=== PATIENT | female | born 1975 | race Caucasian/White ===

== ENCOUNTER 2016-10-15 06:21 | Day surgery (SDC) | payer BC ==
[2016-10-08 16:49] VITALS: BMI 26.9
[~2016-10-15 06:21] MED LIST: ceFAZolin SODIUM 1 GM VIAL IVPB ONE
[2016-10-15] MEDS ORDERED: LIDOCAINE HCL 2% (20ML MULTI-DOSE VIAL) NR ONE (07:05)
[2016-10-15] MEDS ORDERED: DESFLURANE GAS 240 ML BOTTLE IH ONE (07:05)
[2016-10-15] MEDS ORDERED: SODIUM CHLORIDE 0.9% P/F 10 ML VIAL IJ ONE (07:38)
[2016-10-15] MEDS ORDERED: KETOROLAC TROMETHAMINE 30 MG/1 ML VIAL ONE (07:38)
[2016-10-15] MEDS ORDERED: DEXAMETHASONE SOD PHOSPHATE 4 MG/1 ML VIAL ONE (07:38)
[2016-10-15] MEDS ORDERED: PHENYLEPHRINE HCL 10 MG/1 ML SINGLE DOSE VIAL ONE (07:38)
[2016-10-15] MEDS ORDERED: ceFAZolin SODIUM 1 GM VIAL ONE (07:38)
[2016-10-15] MEDS ORDERED: ePHEDrine SULFATE 50 MG/1 ML AMPULE ONE (07:39)
[2016-10-15] MEDS ORDERED: ROCURONIUM BROMIDE 50 MG/5 ML VIAL ONE (07:39)
[2016-10-15] MEDS ORDERED: SUCCINYLCHOLINE CHLORIDE 200 MG/10 ML VIAL ONE (07:39)
[2016-10-15] MEDS ORDERED: PROPOFOL 20 ML ONE (07:39)
[2016-10-15] MEDS ORDERED: MIDAZOLAM HCL 2 MG/2 ML SINGLE DOSE VIAL ONE (07:39)
[2016-10-15] MEDS ORDERED: ceFAZolin SODIUM 1 GM VIAL IVPB ONE (08:17)
[2016-10-15] MEDS ORDERED: ONDANSETRON 4 MG/2 ML VIAL IVPUSH PRN (09:26)
[2016-10-15] MEDS ORDERED: LACTATED RINGERS SOLUTION 1,000 ML IV SCH (09:30)
[2016-10-15] MEDS ORDERED: NEOSTIGMINE METHYLSULFATE 0.5 MG/ML - 10 ML MDV ONE (09:41)
[2016-10-15] MEDS ORDERED: GLYCOPYRROLATE 0.2 MG/1 ML VIAL ONE (09:41)
--- NOTE | 2016-10-15 10:23 | HP ---
History & Physical Update - History History: No Change - Physical Physical: No Change - Assessment Assessment: No Change - Plan Plan: No Change
--- NOTE | 2016-10-15 10:26 | OP ---
Operative Note - Note: Operative Date: 10/15/16 Pre-Operative Diagnosis: Leiomyomatous uterus. abdominal pain Operation: Robotic Laparoscopic Total Hysterectomy. Bilateral salpingectomy Findings: leiomyomatous uterus Post-Operative Diagnosis: Same as Pre-op Surgeon: Chyna Charlton Coating Engineer: Karla Lopez Anesthesia: General Specimens Removed: Uterus cervix and bilateral fallopian tubes Estimated Blood Loss (mls): 30 Operative Report Dictated: Yes
[2016-10-15] MEDS: LACTATED RINGERS SOLUTION 1,000 ML IV SCH (13:00)
[2016-10-15] MEDS: IBUPROFEN 800 MG/8 ML IJ IVPB PRN ×2 (15:18→21:33)
[2016-10-15] MEDS: CEFAZOLIN 1 GM/D5W 50 ML IVPB SCH (17:23)
[2016-10-15 21:04] LABS: MCH 29.1 pg (25.7-33.7); MCHC 33.3 g/dl (32.0-36.0); MEAN CELL VOLUME 87.5 fl (80-96); MEAN PLT VOLUME 7.3 fl (7.5-11.1); PLATELET COUNT 444 K/MM3 (134-434); RDW 13.9 % (11.6-15.6); WHITE BLOOD COUNT 15.7 K/mm3 (4.0-10.0)
[2016-10-15] MEDS: oxyCODONE HCL 5 MG TABLET PO PRN (23:49)
[2016-10-16] MEDS: CEFAZOLIN 1 GM/D5W 50 ML IVPB SCH ×2 (01:32→08:58)
[2016-10-16] MEDS: LACTATED RINGERS SOLUTION 1,000 ML IV SCH (04:00)
[2016-10-16] MEDS: oxyCODONE HCL 5 MG TABLET PO PRN (06:02)
[2016-10-16 07:44] LABS: MCH 29.6 pg (25.7-33.7); MCHC 33.6 g/dl (32.0-36.0); MEAN CELL VOLUME 88.1 fl (80-96); MEAN PLT VOLUME 7.2 fl (7.5-11.1); PLATELET COUNT 371 K/MM3 (134-434); RDW 13.9 % (11.6-15.6); WHITE BLOOD COUNT 15.5 K/mm3 (4.0-10.0)
[2016-10-16] MEDS ORDERED: IBUPROFEN 600 MG TABLET (FP) PO PRN (08:31)
--- NOTE | 2016-10-16 08:37 | PN ---
Progress Note, Physician History of Present Illness: Pt seen/evaluated and doing well. Pain controlled overall, having some gas pain overnight. Tolerating regular diet. Ford catheter draining clear yellow urine, not yet OOB. Denies CP/SOB/F/C/ALBERTO. No VB. - Current Medication List Current Medications: Active Medications Bisacodyl (Dulcolax Suppository -) 10 mg MN ONCE ONE Stop: 10/16/16 12:01 Enoxaparin Sodium (Lovenox -) 30 mg SQ DAILY ROBBY Fentanyl (Sublimaze Injection -) 50 mcg IVPUSH [id number] PRN PRN Reason: PAIN Stop: 10/18/16 09:27 Last Admin: 10/15/16 12:08 Dose: 50 mcg Hydromorphone HCl (Dilaudid -) 4 mg PO Q4H PRN PRN Reason: PAIN Lactated Ringer's (Lactated Ringers Solution) 1,000 mls @ 75 mls/hr IV ASDIR ROBBY Lactated Ringer's (Lactated Ringers Solution) 1,000 mls @ 125 mls/hr IV ASDIR ROBBY Last Admin: 10/16/16 04:00 Dose: 125 mls/hr Cefazolin Sodium (Ancef 1 Gm Premixed Ivpb -) 50 mls @ 100 mls/hr IVPB Q8H-IV ROBBY Stop: 10/16/16 17:59 Last Admin: 10/16/16 01:32 Dose: 100 mls/hr Ibuprofen (Motrin -) 600 mg PO Q6H PRN PRN Reason: FEVER Oxycodone HCl (Roxicodone -) 5 mg PO Q4H PRN PRN Reason: MILD PAIN Last Admin: 10/16/16 06:02 Dose: 5 mg - Objective Vital Signs: Vital Signs Temperature 98.6 F 10/16/16 06:00 Pulse Rate 91 H 10/16/16 06:00 Respiratory Rate 18 10/16/16 06:00 Blood Pressure 138/77 10/16/16 06:00 O2 Sat by Pulse Oximetry (%) 99 10/15/16 21:00 Constitutional: Yes: Well Nourished, No Distress, Calm Eyes: Yes: Conjunctiva Clear, EOM Intact HENT: Yes: Atraumatic, Normocephalic Neck: Yes: Supple, Trachea Midline Cardiovascular: Yes: Regular Rate and Rhythm Respiratory: Yes: Regular, CTA Bilaterally Gastrointestinal: Yes: Soft, Tenderness (appropriate post surgical tenderness) Edema: No Wound/Incision: Yes: Clean/Dry, Dressing Dry and Intact Neurological: Yes: Alert, Oriented Psychiatric: Yes: Alert, Oriented Labs: CBC, BMP 10/16/16 07:00 Problem List - Problems (1) S/P laparoscopic hysterectomy Code(s): Z90.710 - ACQUIRED ABSENCE OF BOTH CERVIX AND UTERUS Assessment/Plan 40 y/o POD#1 s/p laparoscopic (robotic assisted) total hysterectomy and bilateral salpingectomy - AFVSS - Hgb 10.6 post op - pt stable - encourage OOB - regular diet - PO pain meds - OK for discharge once voids and passes flatus
[2016-10-16] MEDS ORDERED: ACETAMINOPHEN 325 MG TABLET (FP) PO PRN (08:45)
[2016-10-16] MEDS ORDERED: ENOXAPARIN NA (PORCINE) 40 MG/0.4 ML DISP.SYRIN SQ SCH (10:00)
[2016-10-16] MEDS ORDERED: ENOXAPARIN NA (PORCINE) 30 MG/0.3 ML DISP.SYRIN SQ SCH (10:00)
[2016-10-16] MEDS ORDERED: BISACODYL 10 MG SUPP.RECT RC ONE (12:00)
--- NOTE | 2016-10-16 13:59 | PATH ---
Surgical Pathology Report Patient Name: RADHA DOMINIQUE [facility]. Rec. 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 Specimen(s) Received UTERUS, CERVIX, BILATERAL FALLOPIAN TUBES Clinical History Leiomyoma of uterus Final Diagnosis UTERUS, CERVIX, BILATERAL FALLOPIAN TUBES, TOTAL HYSTERECTOMY AND BILATERAL SALPINGECTOMY: CERVIX: CHRONIC CERVICITIS. ENDOMETRIUM: PREDOMINANTLY INACTIVE. MYOMETRIUM: FOCAL ADENOMYOSIS, LEIOMYOMATA (LARGEST 1.5 CM). UTERINE SEROSA: WITHOUT SIGNIFICANT PATHOLOGIC CHANGES. LEFT FALLOPIAN TUBE: FOCAL FIBRINOHEMORRHAGIC ADHESIONS. RIGHT FALLOPIAN TUBE: FOCAL FIBRINOHEMORRHAGIC ADHESIONS. Electronically Signed Kyle Beatty M.D. Gross Description Received in formalin, labeled "uterus, cervix, both fallopian tubes" is an 81 g hysterectomy specimen including a uterus with an attached cervix and an attached left fallopian tube. The right fallopian tube is separately received within the same container. The specimen measures 8.2 cm from superior to inferior, 5 cm from anterior to posterior and 4.8 cm from left to right. The serosa is pink-mauro with focal bulging subserosal nodules. The attached cervix measures 2.7 cm in length and averages 2.4 cm in diameter. The ectocervix is pink-mauro, smooth and glistening. The endocervix is unremarkable. The endometrial cavity measures 3.5 cm in length and 2 cm from cornu to cornu. The endometrium is mauro-red and averages 0.1 cm in thickness. There are multiple intramural nodules, measuring up to 1.5 cm in greatest dimension. The cut surface of intramural and subserosal nodules is mauro, firm to rubbery and displays whorled architecture. No areas of hemorrhage or necrosis are identified. The remaining myometrium is mauro-pink and measures up to 2 cm in thickness. The attached left fimbriated fallopian tube measures 3 cm in length. Sectioning reveals an unremarkable lumen. The separately received right fimbriated fallopian tube measures 1.2 cm in length. The outer surface is mauro-pink and smooth. Sectioning reveals an unremarkable lumen. [employer] sections are submitted in 13 cassettes as follows: 1-anterior cervix; 2-posterior cervix; 4-3-iogmncfy endomyometrium; 8-0-oisiyziqg endomyometrium; 8-6-uwaslnalfj nodules; 9-intramural nodules; 10-left fallopian tube fimbria; 11-cross sections of left fallopian tube; 12-right fallopian tube fimbria; 13-cross sections of right fallopian tube. 10/15/2016 [facility]10/15/2016
[2016-10-16 14:07] VITALS: BP 133/88; PULSE 87; TEMP 99
--- NOTE | 2016-10-16 14:42 | OP ---
DATE OF OPERATION: 10/15/2016 PREOPERATIVE DIAGNOSIS: Leiomyomatous uterus and abdominal pain. OPERATION: Robotic laparoscopic total hysterectomy and bilateral salpingectomy. POSTOPERATIVE DIAGNOSIS: Leiomyomatous uterus and abdominal pain. SURGEON: Chyna Charlton MD PECAN HULLER: Karla Lopez DO ANESTHESIA: General. ESTIMATED BLOOD LOSS: 30 mL. PROCEDURE: Patient was taken to the operating room and placed in the dorsal lithotomy position. Prepped and draped in the usual sterile fashion. A timeout was performed in accordance with the hospital regulations. Ford catheter was inserted into the bladder. Cervix was then dilated to accommodate the [employer] uterine manipulator. It was inserted around the cervix. Attention was then drawn to the umbilicus, where an 8-mm umbilical incision was made. Veress needle was inserted into the cavity. Approximately 3 to 4 L of CO2 was insufflated in the cavity. Veress needle was then removed and an 8-mm trocar was then inserted. Laparoscope and camera were attached. Visualization revealed some omental adhesions and leiomyomatous uterus. Trocars were inserted, 2 on the left about 10 mm apart from the umbilicus, slightly lower incision. Scalpel was then used to make an 8-mm incision and trocar was inserted under direct visualization. AirSeal cannula was inserted in the upper abdomen. A 5-mm incision was made, and AirSeal cannula was then inserted. Two trocars were inserted on the right side 8 mm apart from each other at the level of the umbilicus. Scalpel was then used to make the 8-mm incision and both trocars were inserted under direct visualization. The patient was then placed in steep Trendelenburg. Da Carola robot was then side docked to the patient's bedside. Trocars were then inserted. Trocar placement was confirmed internally with the laparoscope and camera. A vessel sealer was inserted on the right and tenaculum and Endoshears were inserted on the left. Tenaculum was then used to coagulate and cut the round ligament. Vesicouterine section was then entered and bladder was bluntly dissected out of the operative field. Uteroovarian ligament was identified and clamped and cut on the left and uterine artery was identified and clamped and cut and cardinal ligament was identified and clamped and cut after bladder was bluntly dissected out of the operative field. Ureters were confirmed with peristalsis prior to the start of the case. Attention was then drawn to moving the tenaculum to the opposite side and round ligaments on the right were identified and clamped and cut. Uteroovarian ligament was identified and clamped and cut. Fallopian tube on the right was coagulated and cut using vessel sealer. Uterine artery was identified and clamped and cut and cardinal ligaments were identified and clamped and cut down to the level of the cervix. Endoshears was then used to enter the vagina anteriorly and on the VCare cut. Endoshears were then used to circumferentially cut the cervix away from the vagina. After cervix had been removed from the vagina, the uterus and tubes and cervix were then removed vaginally. A 0 V-Loc suture was then placed in the abdomen. The Endoshears and tenaculum and vessel sealer were removed and fenestrated bipolar forceps as well as 2 needle holders were inserted under direct visualization and needle was then grasped. The cuff was then closed using 0 V-Loc suture in continuous suturing and oversewing to the middle. V-Loc suture was then cut. The vagina seal was confirmed. Hemostasis was achieved. All pedicles were identified and found to be hemostatic. All instruments were then removed. CO2 was removed from the abdomen. All incisions were closed using 3-0 Biosyn in subcuticular fashion. Wound was washed and dressed. Patient had tolerated procedure well. Patient was taken to the recovery room in stable condition. Estimated blood loss was 30 mL. Alexis [id number]
--- NOTE | 2016-10-16 15:05 | PN ---
Progress Note (short form) - Note Progress Note: ANESTHESIA POST-OP CHECK 40F s/p roboric laparoscopic total hysterectomy under general anesthesia, POD # 1. No acute complaints, pain 0/10. Denies N/V, ambulating, tolerating PO diet. Vital Signs Temperature 99 F 10/16/16 14:00 Pulse Rate 87 10/16/16 14:00 Respiratory Rate 20 10/16/16 14:00 Blood Pressure 133/88 10/16/16 14:00 O2 Sat by Pulse Oximetry (%) 99 10/15/16 21:00 Active Medications Acetaminophen (Tylenol -) 650 mg PO Q4H PRN PRN Reason: FEVER OR PAIN Enoxaparin Sodium (Lovenox -) 30 mg SQ DAILY ROBBY Last Admin: 10/16/16 10:06 Dose: Not Given Fentanyl (Sublimaze Injection -) 50 mcg IVPUSH [id number] PRN PRN Reason: PAIN Stop: 10/18/16 09:27 Last Admin: 10/15/16 12:08 Dose: 50 mcg Hydromorphone HCl (Dilaudid -) 4 mg PO Q4H PRN PRN Reason: PAIN Lactated Ringer's (Lactated Ringers Solution) 1,000 mls @ 75 mls/hr IV ASDIR ROBBY Lactated Ringer's (Lactated Ringers Solution) 1,000 mls @ 125 mls/hr IV ASDIR ROBBY Last Admin: 10/16/16 04:00 Dose: 125 mls/hr Cefazolin Sodium (Ancef 1 Gm Premixed Ivpb -) 50 mls @ 100 mls/hr IVPB Q8H-IV ROBBY Stop: 10/16/16 17:59 Last Admin: 10/16/16 08:58 Dose: 100 mls/hr Ibuprofen (Motrin -) 600 mg PO Q6H PRN PRN Reason: FEVER Last Admin: 10/16/16 08:55 Dose: 600 mg Oxycodone HCl (Roxicodone -) 5 mg PO Q4H PRN PRN Reason: MILD PAIN Last Admin: 10/16/16 06:02 Dose: 5 mg Gen: awake, alert No apparent anesthesia complications. Pain well controlled. Continue management as per primary team.
[2016-10-16] MEDS ORDERED: INSULIN SLIDING SCALE (NOVOLOG) 1 VIAL SQ SCH (16:30)
== END 2016-10-16 15:45 | disposition home or self-care (01) ==
LOC: JASUSAT 06:21 → JASU-SURG 06:21 → J3W 13:20 → JASUSAT 10-16 15:45
PROVIDERS: ATTEND Obstetrics & Gynecology
PROC: 0UT7FZZ Resection of Bilateral Fallopian Tubes, Via Natural or Artificial Opening With Percutaneous Endoscopic Assistance (ICD-10-PCS; 2016-10-15)
PROC: 8E0W4CZ Robotic Assisted Procedure of Trunk Region, Percutaneous Endoscopic Approach (ICD-10-PCS; 2016-10-15)
PROC: 0UT9FZZ Resection of Uterus, Via Natural or Artificial Opening With Percutaneous Endoscopic Assistance (ICD-10-PCS; principal; 2016-10-15 08:00)
PROC: 0UTC7ZZ Resection of Cervix, Via Natural or Artificial Opening (ICD-10-PCS; 2016-10-15 08:00)
DX: N80.0 Endometriosis of uterus (principal); R10.84 Generalized abdominal pain
CPT/HCPCS: 58552; S2900; 36415; 84703; 85027; 88307-TC; 94010; 94760

== ENCOUNTER 2017-03-12 00:11 | Emergency (ER) | payer BC, OTHER ==
--- NOTE | 2017-03-12 01:03 | PDOC ---
History of Present Illness - History of Present Illness Initial Comments: 03/12/17 01:06 Patient is a 41 year old female with significant medical hx of IBS and lactose intolerance who is presenting to the ED with blood in stool for two days. Patient has been having blood in her stool for the past two days without any abdominal pain or diarrhea. She notes that today shes been passing more blood than yesterday. The patient notes that otherwise her bowel movements are formed and normal. She has 3-5 movements per day, as per her usual baseline, and has not increased in frequency. Patient also denies any abdominal pain, vomiting, fever, or chills. Denies any hx of colitis, diverticulitis, or hemorrhoids. Patient has had three colonoscopies in the past and all were negative. GI: Ward Garces MD Surgical Hx: Hysterectomy (10/2016) <Angelina Garnett - Last Filed: 03/12/17 01:18> <Nini Jha - Last Filed: 03/12/17 21:39> - General Stated Complaint: BLOOD IN STOOL Time Seen by Provider: 03/12/17 00:27 Past History <Angelina Garnett - Last Filed: 03/12/17 01:18> - Past Medical History Anemia: No Asthma: No Cancer: No Cardiac Disorders: No CVA: No COPD: No CHF: No Dementia: No Diabetes: No GI Disorders: Yes (IBS) Disorders: No HTN: No Hypercholesterolemia: No Liver Disease: No Seizures: No Thyroid Disease: No - Surgical History Abdominal Surgery: No Appendectomy: No Cardiac Surgery: No Cholecystectomy: No Lung Surgery: No Neurologic Surgery: No Orthopedic Surgery: No - Immunization History Immunization Up to Date: No - Psycho/Social/Smoking Cessation Hx Anxiety: No Suicidal Ideation: No Smoking History: Never smoked Have you smoked in the past 12 months: No Hx Alcohol Use: No Drug/Substance Use Hx: No Substance Use Type: None Hx Substance Use Treatment: No <Nini Jha - Last Filed: 03/12/17 21:39> - Past Medical History Allergies/Adverse Reactions: Allergies Allergy/AdvReac Type Severity Reaction Status Date / Time No Known Drug Allergies Allergy Verified 03/12/17 01:22 Home Medications: Ambulatory Orders Naproxen Sodium [Aleve] 220 mg PO PRN PRN 10/08/16 Hydrocortisone Acetate [Anusol Hc Suppository -] 25 mg RC DAILY #14 supp.rect Review of Systems - Review of Systems Comments:: 03/12/17 01:06 CONSTITUTIONAL: Absent: fever, chills, diaphoresis, generalized weakness, malaise, loss of appetite HEENT: Absent: rhinorrhea, nasal congestion, throat pain, throat swelling, difficulty swallowing, mouth swelling, ear pain, eye pain, visual changes CARDIOVASCULAR: Absent: chest pain, syncope, palpitations, irregular heart rate, lightheadedness , peripheral edema RESPIRATORY: Absent: cough, shortness of breath, dyspnea with exertion, orthopnea, wheezing, stridor, hemoptysis GASTROINTESTINAL: Present: blood in stool Absent: abdominal pain, abdominal distension, nausea, vomiting, diarrhea, constipation, melena, hematochezia GENITOURINARY: Absent: dysuria, frequency, urgency, hesitancy, hematuria, flank pain, genital pain MUSCULOSKELETAL: Absent: myalgia, arthralgia, joint swelling SKIN: Absent: rash, itching, pallor HEMATOLOGIC/IMMUNOLOGIC: Absent: easy bleeding, easy bruising, lymphadenopathy, frequent infections ENDOCRINE: Absent: unexplained weight gain, unexplained weight loss, heat intolerance, cold intolerance NEUROLOGIC: Absent: headache, focal weakness or paresthesia, dizziness, unsteady gait, seizure, mental status changes, bladder or bowel incontinence. PSYCHIATRIC: Absent: anxiety, depression, suicidal or homicidal ideation, hallucinations <Angelina Garnett - Last Filed: 03/12/17 01:18> *Physical Exam - Physical Exam Comments: 03/12/17 01:07 GENERAL: Well developed, well nourished. Awake and alert. No acute distress. HEENT: Normocephalic, atraumatic. PERRLA, EOMI. No conjunctival pallor. Sclera are non- icteric. Moist mucous membranes. Oropharynx is clear. NECK: Supple. Full ROM. No JVD. Carotid pulses 2+ and symmetric, without bruits. No thyromegaly. No lymphadenopathy. CARDIOVASCULAR: Regular rate and rhythm. No murmurs, rubs, or gallops. Distal pulses are 2+ and symmetric. PULMONARY: No evidence of respiratory distress. Lungs clear to auscultation bilaterally. No wheezing, rales or rhonchi. ABDOMINAL: Protuberant. Soft. Non-tender. Non-distended. No rebound or guarding. No organomegaly. Normoactive bowel sounds. MUSCULOSKELETAL: Normal range of motion at all joints. No bony deformities or tenderness. No CVA tenderness. EXTREMITIES: No cyanosis. No clubbing. No edema. No calf tenderness. SKIN: Warm and dry. Normal capillary refill. No rashes. No jaundice. NEUROLOGICAL: Alert, awake, appropriate. Cranial nerves 2-12 intact. Normal speech. Gait is normal without ataxia. PSYCHIATRIC: Cooperative. Good eye contact. Appropriate mood and affect. RECTAL: Skin tags. No thrombosed hemorrhoids. Normal tone. No blood appreciated. <Angelina Garnett - Last Filed: 03/12/17 01:18> ED Treatment Course - LABORATORY CBC & Chemistry Diagram: 03/12/17 01:39 03/12/17 01:39 <Nini Jha - Last Filed: 03/12/17 21:39> Medical Decision Making - Medical Decision Making 03/12/17 21:38 41-year-old female with a past medical history of IBS presented with concerns about bright red blood in her last bowel movement. On exam, she had no external hemorrhoids, but did have a significant number of skin tags. Rectal exam was negative for any blood in the vault. CBC revealed normal hemoglobin and hematocrit. 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 Garces if her symptoms persist. We did discuss the fact that she may have an internal hemorrhoid and Anusol suppositories were recommended <Nini Jha - Last Filed: 03/12/17 21:39> *DC/Admit/Observation/Transfer - Attestations Scribe Attestion: 03/12/17 01:07 Documentation prepared by Angelina Garnett, acting as medical coder for Nini Jha MD. <Angelina Garnett - Last Filed: 03/12/17 01:18> <Nini Jha - Last Filed: 03/12/17 21:39> Diagnosis at time of Disposition: Blood in stool - Discharge Dispostion Disposition: HOME Condition at time of disposition: Stable - Prescriptions Prescriptions: Hydrocortisone Acetate [Anusol Hc Suppository -] 25 mg RC DAILY #14 supp.rect - Referrals Referrals: Mayela Armando MD [Primary Care Provider] - Ward Garces MD [Staff Physician] - - Patient Instructions Printed Discharge Instructions: DI for Rectal Bleeding Additional Instructions: please follow up with your solar sales assessor parts picker your medication at the pharmacy
[2017-03-12 01:22] VITALS: BP 146/85; PULSE 90; TEMP 97.1; BMI 24.4
[2017-03-12 01:46] LABS: BASOPHIL 0.5 % (0-2.0); EOSINOPHIL 1.3 % (0-4.5); MCH 29.3 pg (25.7-33.7); MCHC 33.1 g/dl (32.0-36.0); MEAN CELL VOLUME 88.5 fl (80-96); NEUTROPHILS 74.9 % (42.8-82.8); PLATELET COUNT 417 K/MM3 (134-434); RDW 12.7 % (11.6-15.6); WHITE BLOOD COUNT 13.3 K/mm3 (4.0-10.0)
[2017-03-12 02:13] LABS: ALBUMIN 3.6 g/dl (3.4-5.0); ANION GAP 10 (8-16); BILIRUBIN,TOTAL 0.5 mg/dL (0.2-1.0); CALCIUM 8.5 mg/dL (8.5-10.1); CO2 22 mmol/L (21-32); CREATININE 0.6 mg/dL (0.55-1.02); GLUCOSE,RANDOM 123 mg/dL (74-106); SGOT/AST 15 U/L (15-37); SGPT/ALT 23 U/L (12-78); TOT PROT 7.4 g/dl (6.4-8.2)
[2017-03-12 02:14] LABS: ALK PHOS 99 U/L (45-117)
== END 2017-03-12 02:51 | disposition home or self-care (01) ==
LOC: JER 00:11
DX: K92.1 Melena (principal); K58.9 Irritable bowel syndrome, unspecified
CPT/HCPCS: 36415; 80053; 85025; 99281-25

== ENCOUNTER 2019-09-29 09:58 | Emergency (ER) | payer BC ==
[2019-09-29 10:15] VITALS: BMI 26.9
[2019-09-29] MEDS ORDERED: FAMOTIDINE 20 MG/50 ML IVPB 20 MG/50 ML MG IVPB ONE ×2 (11:05→11:33)
[2019-09-29] MEDS ORDERED: ACETAMINOPHEN 1000 MG/100 ML VIAL (NON FORMULARY) IVPB ONE (11:05)
[2019-09-29] MEDS ORDERED: ACETAMINOPHEN INJECTION 100 ML IVPB ONE (11:33)
[2019-09-29 12:07] LABS: BASO % 0.3 % (0-2.0); EOS % 0.7 % (0-4.5); HEMATOCRIT 35.8 % (32.4-45.2); HEMOGLOBIN 11.9 GM/dL (10.7-15.3); LYMPH % 22.9 % (8-40); MCHC 33.3 g/dl (32.0-36.0); MEAN CELL VOLUME 90.3 fl (80-96); MEAN PLT VOLUME 7.1 fl (7.5-11.1); NEUT % 72.1 % (42.8-82.8); PLATELET COUNT 411 K/MM3 (134-434); RBC 3.96 M/mm3 (3.60-5.2); RDW 12.9 % (11.6-15.6); WHITE BLOOD COUNT 13.2 K/mm3 (4.0-10.0)
[2019-09-29 12:24] LABS: INR 1.06 (0.83-1.09); PROTHROMBIN TIME (PATIENT) 12.5 SEC (9.7-13.0)
[2019-09-29 12:48] LABS: ALBUMIN 3.6 g/dl (3.4-5.0); ALK PHOS 99 U/L (45-117); ANION GAP 6 MMOL/L (8-16); BILIRUBIN,TOTAL 0.4 mg/dL (0.2-1); BLOOD UREA NITROGEN 7.1 mg/dL (7-18); CALCIUM 8.8 mg/dL (8.5-10.1); CHLORIDE 106 mmol/L (98-107); CO2 24 mmol/L (21-32); CREATININE 0.6 mg/dL (0.55-1.3); GLUCOSE,RANDOM 92 mg/dL (74-106); LIPASE 79 U/L (73-393); POTASSIUM 4.5 mmol/L (3.5-5.1); SGOT/AST 22 U/L (15-37); SGPT/ALT 32 U/L (13-61); SODIUM 136 mmol/L (136-145); TOT PROT 7.5 g/dl (6.4-8.2)
--- NOTE | 2019-09-29 12:57 | EKG ---
Test Reason : Blood Pressure : / mmHG Vent. Rate : 091 BPM Atrial Rate : 091 BPM P-R Int : 148 ms QRS Dur : 084 ms QT Int : 354 ms P-R-T Axes : 037 007 047 degrees QTc Int : 435 ms NORMAL SINUS RHYTHM NORMAL ECG WHEN COMPARED WITH ECG OF 08-OCT-2016 16:46, NO SIGNIFICANT CHANGE WAS FOUND Confirmed by MD Chavez Daniel ([id number]) on 09/29/2019 12:56:56 PM Referred By: Confirmed By:Micah Chavez MD
[2019-09-29] MEDS ORDERED: KETOROLAC TROMETHAMINE 15 MG/ML VIAL IVPUSH ONE (13:31)
--- NOTE | 2019-09-29 13:51 | PDOC ---
History of Present Illness <Aldair Romero - Last Filed: 09/29/19 14:34> - General History Source: Patient Exam Limitations: No Limitations - History of Present Illness Initial Comments: 09/29/19 13:48 43y F with PMH of IBS, lactose intolerance presenting to ED for CP x4d. Cp since saturday, went to urgent care yesterday dx with costochondritis, given diclofenac but it caused her gi upset. still has the pain. She describes the pain as sharp, in the middle of the chest and lower left side. Also endorses upper abdominal pain. Denies sob, back pain, n/v/d, urinary symptoms, headache, fevers, chills, recent infections or illnesses, abx use. Denies recent surgeries , travel, ocp use, history of mi in the family, smoking history. <Sherron Chen - Last Filed: 09/30/19 19:53> - General Chief Complaint: Pain Stated Complaint: CHEST PAIN Time Seen by Provider: 09/29/19 10:32 Past History <Aldair Romero - Last Filed: 09/29/19 14:34> - Past Medical History Anemia: No Asthma: No Cancer: No Cardiac Disorders: No CVA: No COPD: No CHF: No Dementia: No Diabetes: No GI Disorders: Yes (IBS) Disorders: No HTN: No Hypercholesterolemia: No Liver Disease: No Seizures: No Thyroid Disease: No - Surgical History Abdominal Surgery: No Appendectomy: No Cardiac Surgery: No Cholecystectomy: No Lung Surgery: No Neurologic Surgery: No Orthopedic Surgery: No - Immunization History Immunization Up to Date: No - Psycho Social/Smoking Cessation Hx Smoking History: Never smoked Have you smoked in the past 12 months: No Hx Alcohol Use: No Drug/Substance Use Hx: No Substance Use Type: None Hx Substance Use Treatment: No <Sherron Chen - Last Filed: 09/30/19 19:53> - Past Medical History Allergies/Adverse Reactions: Allergies Allergy/AdvReac Type Severity Reaction Status Date / Time No Known Drug Allergies Allergy Verified 03/12/17 01:22 Home Medications: Ambulatory Orders Diclofenac Sodium 50 mg PO TID PRN 09/29/19 Review of Systems - Review of Systems Constitutional: No: Symptoms Reported HEENTM: No: Symptoms Reported Respiratory: No: Symptoms reported Cardiac (ROS): Yes: See HPI ABD/GI: Yes: See HPI : No: Symptoms Reported Musculoskeletal: No: Symptoms Reported Integumentary: No: Symptoms Reported Neurological: No: Symptoms reported <Sherron Chen - Last Filed: 09/30/19 19:53> *Physical Exam - Vital Signs Last Vital Signs Temp Pulse Resp BP Pulse Ox 98.4 F 94 H 18 136/79 99 09/29/19 10:12 09/29/19 10:12 09/29/19 10:12 09/29/19 10:12 09/29/19 10:12 <Aldair Romero - Last Filed: 09/29/19 14:34> - Vital Signs Last Vital Signs Temp Pulse Resp BP Pulse Ox 98.4 F 94 H 18 136/79 99 09/29/19 10:12 09/29/19 10:12 09/29/19 10:12 09/29/19 10:12 09/29/19 10:12 - Physical Exam General Appearance: Yes: Nourished, Appropriately Dressed. No: Apparent Distress HEENT: positive: EOMI, RENNY, Normal ENT Inspection Neck: positive: Trachea midline, Supple. negative: Tender Respiratory/Chest: positive: Chest Tender (sternal and lower left chest), Lungs Clear, Normal Breath Sounds. negative: Crackles, Rales, Rhonchi, Stridor, Wheezing Cardiovascular: positive: Regular Rhythm, Regular Rate, S1, S2. negative: Edema , JVD, Murmur Vascular Pulses: Dorsalis-Pedis (R): 2+, Doralis-Pedis (L): 2+ Gastrointestinal/Abdominal: positive: Normal Bowel Sounds, Soft, Tenderness ( epigastric tendernes). negative: Guarding, Rebound Musculoskeletal: negative: CVA Tenderness Extremity: positive: Normal Capillary Refill. 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 intact, Fully Oriented, Alert, Normal Mood/ Affect, Normal Response, Motor Strength 5/5 <Sherron Chen - Last Filed: 09/30/19 19:53> ED Treatment Course - LABORATORY CBC & Chemistry Diagram: 09/29/19 11:42 09/29/19 11:42 - ADDITIONAL ORDERS Additional order review: Laboratory Results 09/29/19 09/29/19 11:42 11:42 PT with INR 12.50 INR 1.06 Sodium 136 Potassium 4.5 Chloride 106 Carbon Dioxide 24 Anion Gap 6 L BUN 7.1 Creatinine 0.6 Est GFR (CKD-EPI)AfAm 127.58 Est GFR (CKD-EPI)NonAf 110.08 Random Glucose 92 Calcium 8.8 Total Bilirubin 0.4 AST 22 ALT 32 Alkaline Phosphatase 99 Troponin I < 0.02 Total Protein 7.5 Albumin 3.6 Lipase 79 09/29/19 11:42 RBC 3.96 MCV 90.3 MCHC 33.3 RDW 12.9 MPV 7.1 L Neutrophils % 72.1 Lymphocytes % 22.9 D Monocytes % 4.0 Eosinophils % 0.7 Basophils % 0.3 - Medications Given in the ED: ED Medications Discontinued Medications Generic Name Dose Route Start Last Admin Trade Name Freq PRN Reason Stop Dose Admin Acetaminophen 1,000 mg 09/29/19 11:05 09/29/19 11:41 Ofirmev Injection - IVPB 09/29/19 11:06 1,000 mg ONCE ONE Administration Famotidine/Sodium Chloride 20 mg in 50 mls @ 100 mls/hr 09/29/19 11:05 11:41 Pepcid 20 Mg Premixed Ivpb - IVPB 09/29/19 11:34 100 mls/hr ONCE ONE Administration <Aldair Romero - Last Filed: 09/29/19 14:34> - LABORATORY CBC & Chemistry Diagram: 09/29/19 11:42 09/29/19 11:42 - ADDITIONAL ORDERS Additional order review: Laboratory Results 09/29/19 09/29/19 11:42 11:42 PT with INR 12.50 INR 1.06 Sodium 136 Potassium 4.5 Chloride 106 Carbon Dioxide 24 Anion Gap 6 L BUN 7.1 Creatinine 0.6 Est GFR (CKD-EPI)AfAm 127.58 Est GFR (CKD-EPI)NonAf 110.08 Random Glucose 92 Calcium 8.8 Total Bilirubin 0.4 AST 22 ALT 32 Alkaline Phosphatase 99 Troponin I < 0.02 Total Protein 7.5 Albumin 3.6 Lipase 79 09/29/19 11:42 RBC 3.96 MCV 90.3 MCHC 33.3 RDW 12.9 MPV 7.1 L Neutrophils % 72.1 Lymphocytes % 22.9 D Monocytes % 4.0 Eosinophils % 0.7 Basophils % 0.3 - RADIOLOGY Radiology Studies Ordered: Category Date Time Status CHEST PA & LAT [RAD] Stat Radiology 09/29/19 10:34 Completed - Medications Given in the ED: ED Medications Discontinued Medications Generic Name Dose Route Start Last Admin Trade Name Tamara PRN Reason Stop Dose Admin Acetaminophen 1,000 mg 09/29/19 11:05 09/29/19 11:41 Ofirmev Injection - IVPB 09/29/19 11:06 1,000 mg ONCE ONE Administration Famotidine/Sodium Chloride 20 mg in 50 mls @ 100 mls/hr 09/29/19 11:05 11:41 Pepcid 20 Mg Premixed Ivpb - IVPB 09/29/19 11:34 100 mls/hr ONCE ONE Administration <Sherron Chen - Last Filed: 09/30/19 19:53> Medical Decision Making - Medical Decision Making 09/29/19 19:45 43y F persenting for chest pain and abdominal discomfort after taking diclofenac. vitals wnl likely costochondritis and sensitivity to diclofenac. low suspicion for acs, pericarditis. PERC negative will draw basic labs, trop, cxr, lipase. -ofirmev, pepcid ekg: nsr at 91bpm, normal intervals, no signs of ischemia. labs wnl. cxr does not show any infiltrates or consolidaitons. pt feeling better. will give iv toradol to help with pain. safe for dc home. given return precautions. <Sherron Chen - Last Filed: 09/30/19 19:53> Discharge <Aldair Romero - Last Filed: 09/29/19 14:34> - Discharge Information Problems reviewed: Yes - Admission No <Sherron Chen - Last Filed: 09/30/19 19:53> - Discharge Information Clinical Impression/Diagnosis: Costochondritis, Diarrhea, Chest pain Condition: Good Disposition: HOME - Follow up/Referral Referrals: Ward Garces MD [Staff Physician] - - Patient Discharge Instructions Patient Printed Discharge Instructions: DI for Costochondritis Additional Instructions: You were seen in the emergency room for chest pain and GI discomfort. The pain is likely costochondritis and the upset stomach is likely from a reaction to the medication. I recommend taking Advil or ibuprofen for the pain. Continue taking PPI's such as Nexium. I recommend seeing a GI doctor as well, if you do not have one referral is provided below. Please make an appointment with your primary care doctor as well; sometimes insurance does not cover specialists without referral by the primary care doctor. Come back to the emergency room for worsening chest pain, shortness of breath, vomiting, or if any new or concerning symptom develops. Thank you - Post Discharge Activity Work/Back to School Note: Back to Work
[2019-09-29] MEDS ORDERED: KETOROLAC TROMETHAMINE 15 MG/ML VIAL ONE (14:27)
--- NOTE | 2019-09-29 14:32 | PDOC ---
Documentation entered by Micah Sotelo SCRIBE, acting as scribe for Aldair Romero MD. Aldair Romero MD: This documentation has been prepared by the Deepak saenz Daniel, SCRIBE, under my direction and personally reviewed by me in its entirety. I confirm that the documentation accurately reflects all work, treatment, procedures, and medical decision making performed by me. Attending Attestation - Resident Resident Name: AprilSherron - ED Attending Attestation I have performed the following: I have examined & evaluated the patient, The case was reviewed & discussed with the resident, I agree w/resident's findings & plan, Exceptions are as noted - HPI HPI: 09/29/19 14:32 43 F with h/o IBS presents to ED with midsternal chest pain. Pt was seen 4 days ago for similar complaint and was diagnosed with costochondritis. Since then, she has been taking diclofenac. Pt notes no improvement in her pain with this medication but reports that it has caused a flare up of her IBS. Endorses diarrhea and abdominal cramps. Denies N/V. Pt denies SOB. Denies F/C/cough. Denies pleuritic or exertional character of pain. - Physicial Exam PE: 09/29/19 14:33 "GENERAL: Awake, alert, and fully oriented, in no acute distress. HEAD: No signs of trauma EYES: PERRLA, EOMI, sclera anicteric, conjunctiva clear ENT: Auricles normal inspection, hearing grossly normal, nares patent, oropharynx clear without exudates. Moist mucosa NECK: Nontender, no stepoffs, Normal ROM, supple, no lymphadenopathy, JVD, or masses LUNGS: Breath sounds equal, clear to auscultation bilaterally. No wheezes, and no crackles HEART: Regular rate and rhythm, normal S1 and S2, no murmurs, rubs or gallops ABDOMEN: Soft, nontender, normoactive bowel sounds. No guarding, no rebound. No masses EXTREMITIES: Normal range of motion, no edema. No clubbing or cyanosis. No cords, erythema, or tenderness NEUROLOGICAL: Cranial nerves II through XII intact. 5/5 strength and sensation in all extremities, Normal speech, normal gait, normal cerebellar function SKIN: Warm, Dry, normal turgor, no rashes or lesions noted. - Medical Decision Making 09/29/19 14:33 43 F with atypical chest pain. EKG nonischemic. PERC score 0. Suspect msk or GI pain. - Labs, trop - CXR 09/29/19 14:49 Labs and XR unremarkable Pt is well appearing, with normal vitals. Clinically stable for DC at this time. I discussed the physical exam findings, ancillary test results and final diagnoses with the patient. I answered all of the patient's questions. The patient was satisfied with the care received and felt comfortable with the discharge plan and treatment plan. The patient agrees to follow up with the primary care physician within 24-72 hours.
[2019-09-29 15:10] VITALS: BP 134/67; PULSE 88; TEMP 98.5
== END 2019-09-29 15:10 | disposition home or self-care (01) ==
LOC: JER 09:58
PROC: 3E033GC Introduction of Other Therapeutic Substance into Peripheral Vein, Percutaneous Approach (ICD-10-PCS; principal; 2019-09-29)
PROC: 3E033GC Introduction of Other Therapeutic Substance into Peripheral Vein, Percutaneous Approach (ICD-10-PCS; 2019-09-29)
PROC: 3E0333Z Introduction of Anti-inflammatory into Peripheral Vein, Percutaneous Approach (ICD-10-PCS; 2019-09-29)
DX: M94.0 Chondrocostal junction syndrome [Tietze] (principal); K52.1 Toxic gastroenteritis and colitis; T39.8X5A Adverse effect of other nonopioid analgesics and antipyretics, not elsewhere classified, initial encounter; Y92.038 Other place in apartment as the place of occurrence of the external cause
CPT/HCPCS: 36415; 71046-TC-FY; 80053; 83690; 84484; 85025; 85610; 93005; 93010; 99283-25; J0131

== ENCOUNTER 2020-06-27 15:02 | Emergency (ER) | payer BC ==
[2020-06-27 15:15] VITALS: BP 156/87; PULSE 109; BMI 27.4
--- NOTE | 2020-06-27 15:17 | PDOC ---
Rapid Medical Evaluation Time Seen by Provider: 06/27/20 15:11 Medical Evaluation: Allergies Allergy/AdvReac Type Severity Reaction Status Date / Time No Known Drug Allergies Allergy Verified 06/27/20 15:09 06/27/20 15:11 I have performed a brief in-person examination on this patient. CC: anal pain with blood streaked stools PE: deferred Orders: nothing Patient will proceed to ED for further evaluation. Discharge Disposition - Diagnosis Anal or rectal pain - Referrals - Patient Instructions - Post Discharge Activity
[2020-06-27 15:18] VITALS: TEMP 97.8
--- NOTE | 2020-06-27 16:26 | PDOC ---
History of Present Illness - General Chief Complaint: Hemorrhoids Stated Complaint: SICK Time Seen by Provider: 06/27/20 15:11 - History of Present Illness Initial Comments: 06/27/20 16:23 44-year-old female with a past medical history of hypertension presents for evaluation of hemorrhoids x1 week. Seen in urgent care given Anusol she has not followed up with gastroenterology yet. Past History - Medical History Allergies/Adverse Reactions: Allergies Allergy/AdvReac Type Severity Reaction Status Date / Time No Known Drug Allergies Allergy Verified 06/27/20 15:09 Home Medications: Ambulatory Orders Diclofenac Sodium 50 mg PO TID PRN 09/29/19 Docusate Sodium [Colace] 100 mg PO BID #20 capsule 06/27/20 Anemia: No Asthma: No Cancer: No Cardiac Disorders: No CVA: No COPD: No CHF: No Dementia: No Diabetes: No GI Disorders: Yes (IBS) Disorders: No HTN: No Hypercholesterolemia: No Liver Disease: No Seizures: No Thyroid Disease: No - Surgical History Abdominal Surgery: No Appendectomy: No Cardiac Surgery: No Cholecystectomy: No Lung Surgery: No Neurologic Surgery: No Orthopedic Surgery: No - Reproductive History Is Patient Now?: No - Immunization History Immunization Up to Date: No - Psycho-Social/Smoking History Smoking History: Never smoked Have you smoked in the past 12 months: No - Substance Abuse Hx (Audit-C & DAST Scrn) How often the patient has a drink containing alcohol: Never Score: In Men: 4 or > Positive; In Women: 3 or > Positive: 0 Screen Result (Pos requires Nsg. Audit-10AR): Negative In the last yr the pt used illegal drug/Rx for NonMed reason: No Score: Yes response is considered Positive: 0 Screen Result (Positive result requires Nsg. DAST-10): Negative Review of Systems - Review of Systems ABD/GI: Yes: See HPI *Physical Exam - Vital Signs Last Vital Signs Temp Pulse Resp BP Pulse Ox 97.8 F 109 H 18 156/87 100 06/27/20 15:09 06/27/20 15:09 06/27/20 15:09 06/27/20 15:09 06/27/20 15:09 - Physical Exam 06/27/20 16:23 Hemorrhoids at the 12:00 and 6 o'clock position nonthrombosed. Medical Decision Making - Medical Decision Making 06/27/20 16:23 Colace continue Anusol follow-up with gastroenterology I have reviewed the pathophysiology with the patient. They are in agreement with the treatment plan all questions were answered to their satisfaction. Understanding for follow-up without fail was also conveyed to the patient. Louie crump they are in agreement. Discharge - Discharge Information Problems reviewed: Yes Clinical Impression/Diagnosis: Anal or rectal pain, Hemorrhoid Condition: Stable Disposition: HOME - Admission No - Additional Discharge Information Prescriptions: Docusate Sodium [Colace] 100 mg PO BID #20 capsule - Follow up/Referral Referrals: Ward Garces MD [Staff Physician] - - Patient Discharge Instructions Additional Instructions: Please take the stool softeners as directed and return to the emergency room for worsening symptoms. Without fail follow-up with gastroenterology in 1 to 2 days for further evaluation and treatment options. - Post Discharge Activity
--- OUTSIDE RECORDS SUMMARY | 2020-06-27 18:04 | XMS ---
:1975 Author Organization [facility] Support Name Relationship Address Phone [employer] Unavailable [address] [place] [address] [address] [place] [place] [address] Re-disclosure Warning The records that you are about to access may contain information from federally- assisted alcohol or drug abuse programs. If such information is present, then the following federally mandated warning applies: This information has been disclosed to you from records protected by federal confidentiality rules (42 CFR part 2). The federal rules prohibit you from making any further disclosure of this information unless further disclosure is expressly permitted by the written consent of the person to whom it pertains or as otherwise permitted by 42 CFR part 2. A general authorization for the release of medical or other information is NOT sufficient for this purpose. The Federal rules restrict any use of the information to criminally investigate or prosecute any alcohol or drug abuse patient.The records that you are about to access may contain highly sensitive health information, the redisclosure of which is protected by Article 27-F of the [facility] Public Health law. If you continue you may haveaccess to information: Regarding HIV / AIDS; Provided by facilities licensed or operated by the [facility] Office of Mental Health; or Provided by the [facility] Office for People With Developmental Disabilities. If such information is present, then the following [facility] mandated warning applies: This information has been disclosed to you from confidential records which are protected by state law. State law prohibits you from making any further disclosure of this information without the specific written consent of the person to whom it pertains, or as otherwise permitted by law. Any unauthorized further disclosure in violation of state law may result in a fine or usp sentence or both. A general authorization for the release of medical or other information is NOT sufficient authorization for further disclosure. Insurance Providers Payer name Policy type / Policy ID Covered Covered green party's Policy Plan Coverage type green party ID relationship to [place] Information [place] OUT OF [id number] [id number]
== END 2020-06-27 16:40 | disposition home or self-care (01) ==
LOC: JERFT 15:02
DX: K62.89 Other specified diseases of anus and rectum (principal)
CPT/HCPCS: 99282-25

== ENCOUNTER 2020-11-21 07:49 | Inpatient (IN) | payer OTHER ==
[2020-11-21] MEDS ORDERED: ONDANSETRON 4 MG/2 ML VIAL IVPUSH ONE ×2 (08:50→14:44)
[2020-11-21] MEDS ORDERED: LACTATED RINGERS SOLUTION 1000 ML INFUS.BAG IV ONE ×2 (08:50→11:45)
[2020-11-21] MEDS ORDERED: FAMOTIDINE 20 MG/50 ML IVPB 20 MG/50 ML MG IVPB ONE ×2 (08:50→08:57)
[2020-11-21] MEDS ORDERED: ACETAMINOPHEN 1000 MG/100 ML VIAL (NON FORMULARY) IVPB ONE (08:50)
[2020-11-21] MEDS ORDERED: SUCRALFATE 1 GM/10 ML UNIT DOSE CUPS PO ONE (08:50)
[2020-11-21] MEDS ORDERED: SUCRALFATE 1 GM TABLET (FP) ONE (08:57)
[2020-11-21] MEDS ORDERED: ONDANSETRON 4 MG/2 ML VIAL ONE ×2 (08:57→14:52)
[2020-11-21] MEDS ORDERED: ACETAMINOPHEN INJECTION 100 ML IVPB ONE (08:58)
[2020-11-21 09:52] LABS: BASO % 0.3 % (0-2.0); EOS % 0.1 % (0-4.5); HEMATOCRIT 37.7 % (32.4-45.2); LYMPH % 19.9 % (8-40); MCH 30.7 pg (25.7-33.7); MCHC 34.4 g/dl (32.0-36.0); MEAN CELL VOLUME 89.4 fl (80-96); MEAN PLT VOLUME 7.1 fl (7.5-11.1); MONO % 2.8 % (3.8-10.2); NEUT % 76.9 % (42.8-82.8); PLATELET COUNT 504 K/MM3 (134-434); RBC 4.21 M/mm3 (3.60-5.2); WHITE BLOOD COUNT 13.1 K/mm3 (4.0-10.0)
[2020-11-21 10:11] LABS: CHLORIDE 105 mmol/L (98-107); SODIUM 138 mmol/L (136-145)
[2020-11-21 10:14] LABS: CALCIUM 9.7 mg/dL (8.5-10.1)
[2020-11-21 10:15] LABS: ALBUMIN 4.1 g/dl (3.4-5.0); ANION GAP 12 MMOL/L (8-16); BLOOD UREA NITROGEN 6.8 mg/dL (7-18); CO2 22 mmol/L (21-32); GLUCOSE,RANDOM 89 mg/dL (74-106); LIPASE 79 U/L (73-393)
[2020-11-21 10:18] LABS: CREATININE 0.6 mg/dL (0.55-1.3); SGOT/AST 24 U/L (15-37); SGPT/ALT 66 U/L (13-61)
[2020-11-21 10:19] LABS: BILIRUBIN,TOTAL 0.7 mg/dL (0.2-1); TOT PROT 8.5 g/dl (6.4-8.2)
[2020-11-21 10:21] LABS: ALK PHOS 111 U/L (45-117)
[2020-11-21] MEDS ORDERED: MAG HYDROX/AL HYDROX/SIMETH 30 ML UNIT-DOSE CUP PO ONE (11:46)
[2020-11-21] MEDS ORDERED: MAG HYDROX/AL HYDROX/SIMETH 30 ML UNIT-DOSE CUP ONE (13:25)
[2020-11-21 14:12] LABS: URINE APPEARANCE CLEAR; URINE BILIRUBIN NEGATIVE (NEGATIVE); URINE COLOR YELLOW; URINE GLUCOSE (UA) NEGATIVE (NEGATIVE); URINE KETONE 1+ (NEGATIVE); URINE LEUK ESTERASE NEGATIVE (NEGATIVE); URINE NITRITE NEGATIVE (NEGATIVE); URINE PROTEIN NEGATIVE (NEGATIVE); URINE UROBILINOGEN 0.2 mg/dL (0.2-1.0)
[2020-11-21 14:49] LABS: EPI CELLS 1 /uL (0-25.1); HYALINE CASTS 0 /uL (0-3.1); URINE BACTERIA 334 /uL (0-1359); URINE RBC 7 /uL (0-23.9); URINE WBC 1 /uL (0-25.8)
[2020-11-21] MEDS ORDERED: LORazepam 1 MG TABLET PO ONE (17:53)
[2020-11-21] MEDS ORDERED: FAMOTIDINE 20 MG TABLET ONE (18:31)
[2020-11-21] MEDS ORDERED: LORazepam 1 MG TABLET ONE (18:32)
[2020-11-21] MEDS: FAMOTIDINE 20 MG TABLET PO SCH (18:52)
[2020-11-22 09:09] LABS: BASO % 0.3 % (0-2.0); EOS % 0.2 % (0-4.5); HEMATOCRIT 35.8 % (32.4-45.2); HEMOGLOBIN 12.3 GM/dL (10.7-15.3); LYMPH % 22.2 % (8-40); MCHC 34.5 g/dl (32.0-36.0); MEAN CELL VOLUME 89.8 fl (80-96); MEAN PLT VOLUME 6.8 fl (7.5-11.1); NEUT % 74.3 % (42.8-82.8); PLATELET COUNT 479 K/MM3 (134-434); RBC 3.98 M/mm3 (3.60-5.2); RDW 13.1 % (11.6-15.6); WHITE BLOOD COUNT 15.2 K/mm3 (4.0-10.0)
[2020-11-22 09:27] LABS: CHLORIDE 104 mmol/L (98-107); POTASSIUM 3.9 mmol/L (3.5-5.1); SODIUM 139 mmol/L (136-145)
[2020-11-22 09:37] LABS: ALBUMIN 4.2 g/dl (3.4-5.0); ANION GAP 11 MMOL/L (8-16); BLOOD UREA NITROGEN 5.8 mg/dL (7-18); CALCIUM 9.3 mg/dL (8.5-10.1); CO2 23 mmol/L (21-32); GLUCOSE,RANDOM 82 mg/dL (74-106)
[2020-11-22 09:38] LABS: MAGNESIUM 2.3 mg/dL (1.8-2.4)
[2020-11-22 09:40] LABS: CREATININE 0.6 mg/dL (0.55-1.3); SGOT/AST 18 U/L (15-37); SGPT/ALT 54 U/L (13-61)
[2020-11-22 09:41] LABS: BILIRUBIN,TOTAL 0.8 mg/dL (0.2-1)
[2020-11-22 09:42] LABS: ALK PHOS 106 U/L (45-117); TOT PROT 8.4 g/dl (6.4-8.2)
[2020-11-22 09:43] LABS: PHOSPHOROUS 3.4 mg/dL (2.5-4.9)
[2020-11-22] MEDS ORDERED: ENOXAPARIN NA (PORCINE) 40 MG/0.4 ML DISP.SYRIN SQ SCH (10:00)
[2020-11-22] MEDS ORDERED: ENOXAPARIN NA (PORCINE) 40 MG/0.4 ML DISP.SYRIN SQ ONE (10:42)
[2020-11-22] MEDS ORDERED: FAMOTIDINE 20 MG TABLET ONE (10:42)
[2020-11-22] MEDS: FAMOTIDINE 20 MG TABLET PO SCH (11:33)
[2020-11-22] MEDS: POLYETHYLENE GLYCOL 3350 119 GM BTL PO SCH ×2 (11:33→23:12)
[2020-11-22] MEDS ORDERED: PANTOPRAZOLE SODIUM 40 MG in SODIUM CHLORIDE 100 ML IVPB ONE (11:34)
[2020-11-22] MEDS ORDERED: METOCLOPRAMIDE HCL INJECTION 10 MG/2 ML VIAL IVPUSH ONE (11:35)
[2020-11-22] MEDS ORDERED: PANTOPRAZOLE SODIUM 40 MG VIAL IVPUSH SCH (11:45)
[2020-11-22] MEDS ORDERED: METOCLOPRAMIDE HCL INJECTION 10 MG/2 ML VIAL IVPB SCH (11:45)
[2020-11-22] MEDS ORDERED: METOCLOPRAMIDE HCL INJECTION 10 MG/2 ML VIAL ONE (11:54)
[2020-11-22] MEDS ORDERED: PANTOPRAZOLE SODIUM 40 MG VIAL ONE (11:55)
[2020-11-22] MEDS ORDERED: DEXTROSE 5%-LACTATED RINGERS 1,000 ML IV SCH (12:00)
[2020-11-22 14:56] LABS: CHOLESTEROL 225 mg/dL (50-200)
[2020-11-22 14:57] LABS: TRIGLYCERIDES 89 mg/dL (0-150)
[2020-11-22 14:58] LABS: LDL CHOLESTEROL (ONLY SJRH) 148 mg/dL (5-100)
[2020-11-22 15:01] LABS: HDL CHOLESTEROL 52 mg/dL (40-60)
[2020-11-22] MEDS: RIFAXIMIN 550 MG TABLET (UD) PO SCH ×2 (15:28→23:12)
[2020-11-22] MEDS ORDERED: amLODIPine BESYLATE 5 MG TABLET (FP) ONE (15:30)
[2020-11-22] MEDS ORDERED: CEFTRIAXONE 1 GM in DEXTROSE 5%-WATER - 50 ML IVPB SCH (16:15)
[2020-11-22] MEDS ORDERED: ALPRAZolam 1 MG TABLET PO PRN (16:41)
[2020-11-22] MEDS ORDERED: ALPRAZolam 1 MG TABLET PO ONE (16:41)
[2020-11-22] MEDS ORDERED: ALPRAZolam 0.25 MG TABLET ONE (17:19)
[2020-11-22] MEDS ORDERED: CEFTRIAXONE 1 GM/50 ML BAG ONE (17:19)
[2020-11-23] MEDS ORDERED: DEXTROSE 5%-LACTATED RINGERS 1,000 ML IV SCH ×2 (00:20→09:46)
[2020-11-23] MEDS ORDERED: ALPRAZolam 0.25 MG TABLET PO PRN (00:20)
[2020-11-23 01:09] VITALS: BMI 23.3
[2020-11-23] MEDS ORDERED: RIFAXIMIN 550 MG TABLET (UD) PO SCH (06:00)
[2020-11-23] MEDS ORDERED: DEXTROSE 5%-WATER - 50 ML IVPB ONE (09:48)
[2020-11-23] MEDS ORDERED: cefTRIAXone SODIUM 1 GM VIAL ONE (09:48)
[2020-11-23] MEDS: ENOXAPARIN NA (PORCINE) 40 MG/0.4 ML DISP.SYRIN SQ SCH (09:54)
[2020-11-23] MEDS: CEFTRIAXONE 1 GM in DEXTROSE 5%-WATER - 50 ML IVPB SCH (09:57)
[2020-11-23] MEDS: PANTOPRAZOLE SODIUM 40 MG VIAL IVPUSH SCH (09:58)
[2020-11-23] MEDS ORDERED: FAMOTIDINE 20 MG TABLET PO SCH (10:00)
[2020-11-23] MEDS ORDERED: PANTOPRAZOLE SODIUM 40 MG VIAL IVPUSH SCH (10:00)
[2020-11-23] MEDS ORDERED: amLODIPine BESYLATE 5 MG TABLET (FP) PO SCH (10:00)
[2020-11-23] MEDS ORDERED: PT OWN MED DRAWER 7, Y5N ONE (12:50)
[2020-11-23] MEDS: POLYETHYLENE GLYCOL 3350 119 GM BTL PO SCH ×2 (13:01→21:41)
[2020-11-23] MEDS: amLODIPine BESYLATE 5 MG TABLET (FP) PO SCH (13:01)
[2020-11-23] MEDS ORDERED: ACETAMINOPHEN 1000 MG/100 ML VIAL (NON FORMULARY) IVPB PRN (14:07)
[2020-11-23] MEDS ORDERED: SIMETHICONE 80 MG TAB.CHEW (FP) PO PRN (15:56)
[2020-11-23 18:20] LABS: BASO % 0.3 % (0-2.0); EOS % 0.4 % (0-4.5); HEMATOCRIT 36.4 % (32.4-45.2); HEMOGLOBIN 12.1 GM/dL (10.7-15.3); LYMPH % 27.5 % (8-40); MCH 30.1 pg (25.7-33.7); MCHC 33.4 g/dl (32.0-36.0); MEAN CELL VOLUME 90.1 fl (80-96); MEAN PLT VOLUME 6.9 fl (7.5-11.1); MONO % 3.9 % (3.8-10.2); NEUT % 67.9 % (42.8-82.8); PLATELET COUNT 473 K/MM3 (134-434); RBC 4.03 M/mm3 (3.60-5.2); RDW 13.1 % (11.6-15.6); WHITE BLOOD COUNT 14.6 K/mm3 (4.0-10.0)
[2020-11-23 18:42] LABS: POTASSIUM 3.5 mmol/L (3.5-5.1)
[2020-11-23 18:44] LABS: ALBUMIN 3.9 g/dl (3.4-5.0); BLOOD UREA NITROGEN 5.8 mg/dL (7-18); CALCIUM 9.1 mg/dL (8.5-10.1); MAGNESIUM 2.1 mg/dL (1.8-2.4)
[2020-11-23 18:47] LABS: CREATININE 0.5 mg/dL (0.55-1.3)
[2020-11-23 18:49] LABS: TOT PROT 7.8 g/dl (6.4-8.2)
[2020-11-24 09:21] LABS: BASO % 0.5 % (0-2.0); EOS % 0.6 % (0-4.5); HEMATOCRIT 35.2 % (32.4-45.2); HEMOGLOBIN 12.1 GM/dL (10.7-15.3); LYMPH % 24.5 % (8-40); MCH 30.8 pg (25.7-33.7); MCHC 34.5 g/dl (32.0-36.0); MEAN CELL VOLUME 89.4 fl (80-96); MEAN PLT VOLUME 6.9 fl (7.5-11.1); MONO % 4.1 % (3.8-10.2); NEUT % 70.3 % (42.8-82.8); PLATELET COUNT 462 K/MM3 (134-434); RBC 3.94 M/mm3 (3.60-5.2); RDW 12.9 % (11.6-15.6); WHITE BLOOD COUNT 10.9 K/mm3 (4.0-10.0)
[2020-11-24] MEDS ORDERED: cefTRIAXone SODIUM 1 GM VIAL ONE (09:47)
[2020-11-24] MEDS ORDERED: DEXTROSE 5%-WATER - 50 ML IVPB ONE (09:47)
[2020-11-24 09:50] LABS: POTASSIUM 3.6 mmol/L (3.5-5.1)
[2020-11-24 09:51] LABS: BLOOD UREA NITROGEN 7.8 mg/dL (7-18); CALCIUM 9.2 mg/dL (8.5-10.1)
[2020-11-24 09:55] LABS: CREATININE 0.6 mg/dL (0.55-1.3)
[2020-11-24] MEDS: CEFTRIAXONE 1 GM in DEXTROSE 5%-WATER - 50 ML IVPB SCH (09:59)
[2020-11-24] MEDS: PANTOPRAZOLE SODIUM 40 MG VIAL IVPUSH SCH (10:00)
[2020-11-24] MEDS: amLODIPine BESYLATE 5 MG TABLET (FP) PO SCH (10:00)
[2020-11-24] MEDS: ENOXAPARIN NA (PORCINE) 40 MG/0.4 ML DISP.SYRIN SQ SCH (10:55)
[2020-11-24] MEDS: POLYETHYLENE GLYCOL 3350 119 GM BTL PO SCH ×2 (10:56→21:17)
[2020-11-24] MEDS ORDERED: BUPIVACAINE HCL 100 ML ONE (14:05)
[2020-11-24] MEDS ORDERED: MIDAZOLAM HCL 2 MG/2 ML SINGLE DOSE VIAL ONE (16:42)
[2020-11-24] MEDS ORDERED: ROCURONIUM BROMIDE 50 MG/5 ML SYRINGE ONE (16:42)
[2020-11-24] MEDS ORDERED: fentaNYL CITRATE 250 MCG/5 ML VIAL ONE (16:42)
[2020-11-24] MEDS ORDERED: PROPOFOL 20 ML ONE ×4 (16:56→18:12)
[2020-11-24] MEDS ORDERED: BUPIVACAINE HCL/PF 0.5% (5 MG/ML) 30 ML VIAL IJ ONE ×2 (17:11)
[2020-11-24] MEDS ORDERED: MORPHINE SULFATE 2 MG/ML VIAL IVPUSH PRN (17:16)
[2020-11-24] MEDS ORDERED: GLYCOPYRROLATE 0.2 MG/1 ML VIAL ONE (17:51)
[2020-11-24] MEDS ORDERED: NEOSTIGMINE METHYLSULFATE 0.5 MG/ML - 10 ML MDV ONE (17:51)
[2020-11-24] MEDS ORDERED: ACETAMINOPHEN 325 MG TABLET (FP) PO PRN (18:00)
[2020-11-24] MEDS ORDERED: oxyCODONE HCL 5 MG TABLET PO PRN ×2 (18:00→18:44)
[2020-11-24] MEDS ORDERED: KETOROLAC TROMETHAMINE 30 MG/1 ML VIAL ONE (18:20)
[2020-11-24] MEDS ORDERED: ALPRAZolam 0.25 MG TABLET PO PRN (18:44)
[2020-11-24] MEDS ORDERED: SIMETHICONE 80 MG TAB.CHEW (FP) PO PRN (18:44)
[2020-11-24] MEDS ORDERED: ONDANSETRON 4 MG/2 ML VIAL IVPUSH PRN (19:27)
[2020-11-24] MEDS: ACETAMINOPHEN 1000 MG/100 ML VIAL (NON FORMULARY) IVPB ONE (20:20)
[2020-11-24] MEDS ORDERED: ACETAMINOPHEN INJECTION 100 ML IVPB ONE (20:22)
[2020-11-25] MEDS: ceFAZolin 2 GRAM PREMIX BAG IVPB SCH ×2 (00:10→10:29)
[2020-11-25] MEDS ORDERED: ACETAMINOPHEN 325 MG TABLET (FP) PO PRN (00:30)
[2020-11-25] MEDS: MORPHINE SULFATE 2 MG/ML VIAL IVPUSH PRN ×2 (00:42→05:27)
[2020-11-25 08:19] LABS: BASO % 0.2 % (0-2.0); EOS % 0.1 % (0-4.5); HEMATOCRIT 34.8 % (32.4-45.2); HEMOGLOBIN 11.7 GM/dL (10.7-15.3); LYMPH % 16.7 % (8-40); MCH 30.2 pg (25.7-33.7); MCHC 33.7 g/dl (32.0-36.0); MEAN CELL VOLUME 89.6 fl (80-96); MEAN PLT VOLUME 6.8 fl (7.5-11.1); MONO % 3.9 % (3.8-10.2); NEUT % 79.1 % (42.8-82.8); PLATELET COUNT 472 K/MM3 (134-434); RBC 3.89 M/mm3 (3.60-5.2); RDW 12.9 % (11.6-15.6); WHITE BLOOD COUNT 15.3 K/mm3 (4.0-10.0)
[2020-11-25 08:36] LABS: POTASSIUM 3.9 mmol/L (3.5-5.1)
[2020-11-25 09:01] LABS: CALCIUM 9.1 mg/dL (8.5-10.1)
[2020-11-25 09:02] LABS: ALBUMIN 3.6 g/dl (3.4-5.0)
[2020-11-25 09:05] LABS: CREATININE 0.6 mg/dL (0.55-1.3); PHOSPHOROUS 4.2 mg/dL (2.5-4.9)
[2020-11-25 09:06] LABS: BILIRUBIN,TOTAL 0.6 mg/dL (0.2-1); TOT PROT 7.5 g/dl (6.4-8.2)
[2020-11-25] MEDS: PANTOPRAZOLE SODIUM 40 MG VIAL IVPUSH SCH (10:25)
[2020-11-25] MEDS: ENOXAPARIN NA (PORCINE) 40 MG/0.4 ML DISP.SYRIN SQ SCH (10:29)
[2020-11-25] MEDS: amLODIPine BESYLATE 5 MG TABLET (FP) PO SCH (10:29)
[2020-11-25] MEDS: POLYETHYLENE GLYCOL 3350 119 GM BTL PO SCH ×2 (10:32→21:22)
[2020-11-25] MEDS ORDERED: CEFEPIME HCL/D5W 2 GM/50 ML BAG IVPB SCH (12:15)
[2020-11-25] MEDS: AMOX TR/POT CLAV 875MG/125MG TABLETS (FP) PO SCH (17:28)
[2020-11-26] MEDS: AMOX TR/POT CLAV 875MG/125MG TABLETS (FP) PO SCH (08:24)
[2020-11-26 08:37] LABS: BASO % 0.3 % (0-2.0); EOS % 0.8 % (0-4.5); HEMATOCRIT 32.9 % (32.4-45.2); HEMOGLOBIN 11.3 GM/dL (10.7-15.3); LYMPH % 30.3 % (8-40); MCH 30.9 pg (25.7-33.7); MCHC 34.3 g/dl (32.0-36.0); MEAN CELL VOLUME 90.2 fl (80-96); MONO % 5.2 % (3.8-10.2); NEUT % 63.4 % (42.8-82.8); PLATELET COUNT 404 K/MM3 (134-434); RBC 3.64 M/mm3 (3.60-5.2); RDW 12.8 % (11.6-15.6); WHITE BLOOD COUNT 12.4 K/mm3 (4.0-10.0)
[2020-11-26 08:55] LABS: POTASSIUM 3.4 mmol/L (3.5-5.1)
[2020-11-26 09:09] LABS: CALCIUM 8.8 mg/dL (8.5-10.1)
[2020-11-26 09:10] LABS: BLOOD UREA NITROGEN 9.8 mg/dL (7-18)
[2020-11-26 09:12] LABS: CREATININE 0.5 mg/dL (0.55-1.3)
[2020-11-26] MEDS ORDERED: POTASSIUM CHLORIDE TABS 20 MEQ TABLET.ER (FP) PO ONE (10:28)
[2020-11-26] MEDS: ENOXAPARIN NA (PORCINE) 40 MG/0.4 ML DISP.SYRIN SQ SCH (10:49)
[2020-11-26] MEDS: amLODIPine BESYLATE 5 MG TABLET (FP) PO SCH (10:50)
[2020-11-26] MEDS: PANTOPRAZOLE SODIUM 40 MG VIAL IVPUSH SCH (10:50)
[2020-11-26] MEDS: POLYETHYLENE GLYCOL 3350 119 GM BTL PO SCH ×2 (11:05→13:58)
[2020-11-26 14:21] VITALS: BP 132/76; PULSE 99; TEMP 99.1
== END 2020-11-26 16:04 | disposition home or self-care (01) | DRG 710 ==
LOC: JER 07:49 → JERBED 17:16 → OBSVTOIN 17:51 → J6S 11-22 23:26
PROVIDERS: ADMIT Internal Medicine; ATTEND Student in an Organized Health Care Education/Training Program
PROC: 0FT44ZZ Resection of Gallbladder, Percutaneous Endoscopic Approach (ICD-10-PCS; principal; 2020-11-24 15:00)
DX: A41.9 Sepsis, unspecified organism (principal); F41.9 Anxiety disorder, unspecified; K80.12 Calculus of gallbladder with acute and chronic cholecystitis without obstruction; D72.829 Elevated white blood cell count, unspecified; I10 Essential (primary) hypertension; E78.5 Hyperlipidemia, unspecified; K21.9 Gastro-esophageal reflux disease without esophagitis; R19.7 Diarrhea, unspecified
CPT/HCPCS: 36415; 71045-TC-FY; 76705-TC; 78226-TC; 80048; 80053; 80061; 81003; 82150; 82550; 83690; 83721; 83735; 84100; 84443; 84484; 84703; 85025; 86850; 86900; 86901; 87086; 87186; 88304-TC; 93005; 93010; 94010; 94760; 99285-25; A9537; C9803; G0378; J0131; U0003

== ENCOUNTER 2020-12-04 11:10 | Emergency (ER) | payer OTHER ==
[2020-12-04 11:15] VITALS: BP 132/87; PULSE 107; TEMP 98; BMI 25.7
[2020-12-04 12:18] LABS: BASO % 0.5 % (0-2.0); EOS % 1.9 % (0-4.5); LYMPH % 22.9 % (8-40); MCH 30.8 pg (25.7-33.7); MCHC 34.2 g/dl (32.0-36.0); MEAN CELL VOLUME 90.2 fl (80-96); MEAN PLT VOLUME 7.4 fl (7.5-11.1); MONO % 2.9 % (3.8-10.2); NEUT % 71.8 % (42.8-82.8); PLATELET COUNT 468 K/MM3 (134-434); RBC 3.88 M/mm3 (3.60-5.2); RDW 13.1 % (11.6-15.6); WHITE BLOOD COUNT 9.6 K/mm3 (4.0-10.0)
[2020-12-04 12:19] LABS: PH,URINE 5.5 (5.0-8.0); URINE APPEARANCE CLEAR; URINE BILIRUBIN NEGATIVE (NEGATIVE); URINE COLOR YELLOW; URINE GLUCOSE (UA) NEGATIVE (NEGATIVE); URINE KETONE 3+ (NEGATIVE); URINE LEUK ESTERASE NEGATIVE (NEGATIVE); URINE NITRITE NEGATIVE (NEGATIVE); URINE PROTEIN NEGATIVE (NEGATIVE); URINE UROBILINOGEN 0.2 mg/dL (0.2-1.0)
[2020-12-04 12:22] LABS: HCG,QUALITATIVE URINE Negative
[2020-12-04 12:44] LABS: POTASSIUM 3.3 mmol/L (3.5-5.1)
[2020-12-04 12:46] LABS: ALBUMIN 3.8 g/dl (3.4-5.0); CALCIUM 9.2 mg/dL (8.5-10.1)
[2020-12-04 12:47] LABS: BLOOD UREA NITROGEN 5.2 mg/dL (7-18)
[2020-12-04 12:49] LABS: CREATININE 0.6 mg/dL (0.55-1.3)
[2020-12-04 12:51] LABS: BILIRUBIN,TOTAL 0.4 mg/dL (0.2-1)
== END 2020-12-04 13:18 | disposition home or self-care (01) ==
LOC: JER 11:10
DX: R43.9 Unspecified disturbances of smell and taste (principal); R11.0 Nausea
CPT/HCPCS: 36415; 80053; 81003; 83690; 84703; 85025; 87086; 99284-25; C9803; U0003

== ENCOUNTER 2021-01-27 13:48 | Emergency (ER) | payer OTHER ==
[2021-01-27 14:32] VITALS: BMI 24.4
[2021-01-27 15:21] LABS: BASO % 0.2 % (0-2.0); EOS % 1.1 % (0-4.5); HEMATOCRIT 39.3 % (32.4-45.2); HEMOGLOBIN 13.5 GM/dL (10.7-15.3); LYMPH % 14.4 % (8-40); MCH 30.6 pg (25.7-33.7); MCHC 34.3 g/dl (32.0-36.0); MEAN CELL VOLUME 89.2 fl (80-96); MEAN PLT VOLUME 7.2 fl (7.5-11.1); MONO % 3.9 % (3.8-10.2); NEUT % 80.4 % (42.8-82.8); PLATELET COUNT 399 K/MM3 (134-434); RDW 12.7 % (11.6-15.6); WHITE BLOOD COUNT 14.3 K/mm3 (4.0-10.0)
[2021-01-27 15:46] LABS: CHLORIDE 101 mmol/L (98-107); SODIUM 136 mmol/L (136-145)
[2021-01-27] MEDS ORDERED: SODIUM CHLORIDE 0.9% 500 ML INFUS.BAG IV ONE (15:46)
[2021-01-27 15:48] LABS: ALBUMIN 4.5 g/dl (3.4-5.0); ANION GAP 11 MMOL/L (8-16); BLOOD UREA NITROGEN 12.6 mg/dL (7-18); CALCIUM 9.4 mg/dL (8.5-10.1); CO2 24 mmol/L (21-32); GLUCOSE,RANDOM 91 mg/dL (74-106); MAGNESIUM 2.4 mg/dL (1.8-2.4)
[2021-01-27 15:51] LABS: CREATININE 0.8 mg/dL (0.55-1.3); SGOT/AST 29 U/L (15-37); SGPT/ALT 56 U/L (13-61)
[2021-01-27 15:53] LABS: BILIRUBIN,TOTAL 0.6 mg/dL (0.2-1); TOT PROT 9.1 g/dl (6.4-8.2)
[2021-01-27 15:54] LABS: ALK PHOS 124 U/L (45-117)
[2021-01-27 16:49] VITALS: BP 148/87; PULSE 86; TEMP 98
== END 2021-01-27 16:49 | disposition home or self-care (01) ==
LOC: JER 13:48
DX: R55 Syncope and collapse (principal)
CPT/HCPCS: 36415; 80053; 83735; 84484; 85025; 93005; 93010; 99284-25; C9803; U0003; U0005

== ENCOUNTER 2021-04-10 09:05 | Emergency (ER) | payer OTHER ==
[2021-04-10 09:13] VITALS: TEMP 98.1; BMI 23.1
[2021-04-10] MEDS ORDERED: MECLIZINE HCL 25 MG TABLET (FP) PO ONE (10:23)
[2021-04-10] MEDS ORDERED: MECLIZINE HCL 25 MG TABLET (FP) ONE (10:29)
[2021-04-10 11:44] LABS: BASO % 0.4 % (0-2.0); EOS % 0.3 % (0-4.5); HEMATOCRIT 38.9 % (32.4-45.2); HEMOGLOBIN 13.1 GM/dL (10.7-15.3); LYMPH % 26.9 % (8-40); MCH 30.2 pg (25.7-33.7); MCHC 33.7 g/dl (32.0-36.0); MEAN CELL VOLUME 89.7 fl (80-96); MONO % 2.5 % (3.8-10.2); NEUT % 69.9 % (42.8-82.8); PLATELET COUNT 443 10^3/uL (134-434); RBC 4.33 M/mm3 (3.60-5.2); RDW 13.2 % (11.6-15.6); WHITE BLOOD COUNT 12.8 K/mm3 (4.0-10.0)
[2021-04-10 11:47] LABS: URINE APPEARANCE CLEAR; URINE BILIRUBIN NEGATIVE (NEGATIVE); URINE COLOR YELLOW; URINE GLUCOSE (UA) NEGATIVE (NEGATIVE); URINE KETONE NEGATIVE (NEGATIVE); URINE LEUK ESTERASE NEGATIVE (NEGATIVE); URINE NITRITE NEGATIVE (NEGATIVE); URINE PROTEIN NEGATIVE (NEGATIVE); URINE UROBILINOGEN 0.2 mg/dL (0.2-1.0)
[2021-04-10 12:07] LABS: CHLORIDE 105 mmol/L (98-107); SODIUM 140 mmol/L (136-145)
[2021-04-10 12:08] LABS: ALBUMIN 4.4 g/dl (3.4-5.0); CALCIUM 9.6 mg/dL (8.5-10.1)
[2021-04-10 12:09] LABS: ANION GAP 9 MMOL/L (8-16); BLOOD UREA NITROGEN 8.4 mg/dL (7-18); CO2 26 mmol/L (21-32); GLUCOSE,RANDOM 91 mg/dL (74-106)
[2021-04-10 12:12] LABS: SGPT/ALT 36 U/L (13-61)
[2021-04-10 12:13] LABS: CREATININE 0.7 mg/dL (0.55-1.3); SGOT/AST 16 U/L (15-37)
[2021-04-10 12:14] LABS: ALK PHOS 109 U/L (45-117); BILIRUBIN,TOTAL 0.7 mg/dL (0.2-1); TOT PROT 8.7 g/dl (6.4-8.2)
[2021-04-10] MEDS ORDERED: diazePAM 5 MG TABLET PO ONE (13:53)
[2021-04-10] MEDS ORDERED: diazePAM 5 MG TABLET ONE (14:00)
[2021-04-10] MEDS ORDERED: ACETAMINOPHEN 325 MG TABLET (FP) PO ONE (14:03)
[2021-04-10 14:06] VITALS: BP 140/87; PULSE 93
== END 2021-04-10 14:15 | disposition home or self-care (01) ==
LOC: JER 09:05
DX: R42 Dizziness and giddiness (principal)
CPT/HCPCS: 36415; 71046-TC-FY; 80053; 81003; 82550; 84484; 85025; 93005; 93010; 99285-25

== ENCOUNTER 2023-05-02 08:23 | Emergency (ER) | payer OTHER ==
[2023-05-02 08:34] VITALS: BP 142/79; PULSE 102; RESP 16; TEMP 98.4; BMI 22.4
[2023-05-02] MEDS ORDERED: LACTATED RINGERS SOLUTION 1,000 ML IV STA (08:59)
[2023-05-02] MEDS ORDERED: FAMOTIDINE 20 MG/50 ML IVPB 20 MG/50 ML MG IVPB ONE (08:59)
[2023-05-02] MEDS ORDERED: ONDANSETRON 4 MG/2 ML VIAL IVPUSH ONE (09:01)
[2023-05-02] MEDS ORDERED: ONDANSETRON *ODT* 4 MG TABLET SL ONE (09:17)
[2023-05-02] MEDS ORDERED: FAMOTIDINE 20 MG TABLET PO ONE (09:17)
[2023-05-02 09:38] LABS: PH,URINE 5.5 (5.0-8.0); URINE APPEARANCE CLEAR; URINE BILIRUBIN NEGATIVE (NEGATIVE); URINE COLOR YELLOW; URINE GLUCOSE (UA) NEGATIVE (NEGATIVE); URINE KETONE 1+ (NEGATIVE); URINE LEUK ESTERASE NEGATIVE (NEGATIVE); URINE NITRITE NEGATIVE (NEGATIVE); URINE PROTEIN NEGATIVE (NEGATIVE); URINE UROBILINOGEN 0.2 mg/dL (0.2-1.0)
[2023-05-02 09:40] LABS: HCG,QUALITATIVE URINE Negative
[2023-05-02] MEDS ORDERED: ONDANSETRON *ODT* 4 MG TABLET ONE (09:46)
[2023-05-02] MEDS ORDERED: FAMOTIDINE 20 MG TABLET ONE (09:47)
== END 2023-05-02 11:03 | disposition home or self-care (01) ==
LOC: JER 08:23
DX: R11.2 Nausea with vomiting, unspecified (principal); R19.7 Diarrhea, unspecified; K58.0 Irritable bowel syndrome with diarrhea
CPT/HCPCS: 81003; 84703; 99283-25; Q0162

== ENCOUNTER 2023-05-30 12:33 | Emergency (ER) | payer OTHER ==
[2023-05-30 12:43] VITALS: RESP 20; BMI 22.9
[2023-05-30] MEDS ORDERED: FAMOTIDINE 20 MG/50 ML IVPB 20 MG/50 ML MG IVPB ONE ×2 (13:24→13:29)
[2023-05-30] MEDS ORDERED: SODIUM CHLORIDE 0.9% 500 ML INFUS.BAG IV ONE (13:24)
[2023-05-30] MEDS ORDERED: KETOROLAC TROMETHAMINE 30 MG/1 ML VIAL IVPUSH ONE (13:25)
[2023-05-30] MEDS ORDERED: KETOROLAC TROMETHAMINE 30 MG/1 ML VIAL ONE (13:29)
[2023-05-30 14:16] LABS: BASO % 0.5 % (0-2.0); EOS % 0.3 % (0-4.5); HEMATOCRIT 38.1 % (32.4-45.2); HEMOGLOBIN 12.6 GM/dL (10.7-15.3); LYMPH % 27.4 % (8-40); MCH 30.2 pg (25.7-33.7); MEAN CELL VOLUME 91.7 fl (80-96); MEAN PLT VOLUME 7.5 fl (7.5-11.1); MONO % 3.5 % (3.8-10.2); NEUT % 68.3 % (42.8-82.8); PLATELET COUNT 492 10^3/uL (134-434); RBC 4.15 M/mm3 (3.60-5.2); RDW 12.8 % (11.6-15.6); WHITE BLOOD COUNT 11.9 K/mm3 (4.0-10.0)
[2023-05-30 14:31] LABS: URINE APPEARANCE CLEAR; URINE BILIRUBIN NEGATIVE (NEGATIVE); URINE COLOR YELLOW; URINE GLUCOSE (UA) NEGATIVE (NEGATIVE); URINE KETONE NEGATIVE (NEGATIVE); URINE LEUK ESTERASE NEGATIVE (NEGATIVE); URINE NITRITE NEGATIVE (NEGATIVE); URINE PROTEIN NEGATIVE (NEGATIVE); URINE UROBILINOGEN 0.2 mg/dL (0.2-1.0)
[2023-05-30 14:34] LABS: POTASSIUM 5.9 mmol/L (3.5-5.1)
[2023-05-30 14:36] LABS: BLOOD UREA NITROGEN 9.4 mg/dL (7-18); CALCIUM 9.4 mg/dL (8.5-10.1)
[2023-05-30 14:37] LABS: ALBUMIN 4.2 g/dl (3.4-5.0)
[2023-05-30 14:40] LABS: CREATININE 0.7 mg/dL (0.55-1.3)
[2023-05-30 14:41] LABS: BILIRUBIN,TOTAL 0.8 mg/dL (0.2-1); TOT PROT 8.8 g/dl (6.4-8.2)
[2023-05-30 17:18] LABS: POTASSIUM 3.7 mmol/L (3.5-5.1)
[2023-05-30 17:21] LABS: BLOOD UREA NITROGEN 7.2 mg/dL (7-18); CALCIUM 8.4 mg/dL (8.5-10.1)
[2023-05-30 17:22] LABS: ALBUMIN 3.8 g/dl (3.4-5.0)
[2023-05-30 17:25] LABS: CREATININE 0.5 mg/dL (0.55-1.3)
[2023-05-30 17:26] LABS: BILIRUBIN,TOTAL 0.7 mg/dL (0.2-1); TOT PROT 7.4 g/dl (6.4-8.2)
[2023-05-30] MEDS ORDERED: MAG HYDROX/AL HYDROX/SIMETH 30 ML UNIT-DOSE CUP PO ONE (17:34)
[2023-05-30] MEDS ORDERED: DICYCLOMINE HCL 10 MG CAPSULE PO ONE (17:34)
[2023-05-30] MEDS ORDERED: DICYCLOMINE HCL 10 MG CAPSULE ONE (17:43)
[2023-05-30 17:44] VITALS: BP 127/69; PULSE 98; TEMP 98.6
[2023-05-30] MEDS ORDERED: MAG HYDROX/AL HYDROX/SIMETH 30 ML UNIT-DOSE CUP ONE (17:44)
== END 2023-05-30 18:06 | disposition home or self-care (01) ==
LOC: JER 12:33
PROC: 3E033GC Introduction of Other Therapeutic Substance into Peripheral Vein, Percutaneous Approach (ICD-10-PCS; principal; 2023-05-30)
PROC: 3E0333Z Introduction of Anti-inflammatory into Peripheral Vein, Percutaneous Approach (ICD-10-PCS; 2023-05-30)
DX: R10.84 Generalized abdominal pain (principal); R19.7 Diarrhea, unspecified
CPT/HCPCS: 36415; 74177-TC; 80053; 81003; 83690; 85025; 87086; 99285-25; Q9967

== ENCOUNTER 2023-06-03 06:30 | Emergency (ER) | payer OTHER ==
[2023-06-03 06:42] VITALS: BMI 23.1
[2023-06-03] MEDS ORDERED: SODIUM CHLORIDE 0.9% 500 ML INFUS.BAG IV ONE (07:34)
[2023-06-03] MEDS ORDERED: ONDANSETRON 4 MG/2 ML VIAL IVPUSH ONE (07:34)
[2023-06-03] MEDS ORDERED: FAMOTIDINE 20 MG/50 ML IVPB 20 MG/50 ML MG IVPB ONE ×2 (07:35→08:00)
[2023-06-03] MEDS ORDERED: MAG HYDROX/AL HYDROX/SIMETH 30 ML UNIT-DOSE CUP PO ONE (07:36)
[2023-06-03] MEDS ORDERED: ONDANSETRON 4 MG/2 ML VIAL ONE (07:59)
[2023-06-03] MEDS ORDERED: MAG HYDROX/AL HYDROX/SIMETH 30 ML UNIT-DOSE CUP ONE (07:59)
[2023-06-03 08:27] LABS: BASO % 0.3 % (0-2.0); EOS % 0.2 % (0-4.5); HEMATOCRIT 36.1 % (32.4-45.2); HEMOGLOBIN 12.5 GM/dL (10.7-15.3); LYMPH % 16.8 % (8-40); MCH 30.6 pg (25.7-33.7); MCHC 34.5 g/dl (32.0-36.0); MEAN CELL VOLUME 88.8 fl (80-96); MEAN PLT VOLUME 6.7 fl (7.5-11.1); MONO % 2.4 % (3.8-10.2); NEUT % 80.3 % (42.8-82.8); PLATELET COUNT 459 10^3/uL (134-434); RBC 4.07 M/mm3 (3.60-5.2); RDW 12.5 % (11.6-15.6); WHITE BLOOD COUNT 12.3 K/mm3 (4.0-10.0)
[2023-06-03 08:40] LABS: POTASSIUM 3.9 mmol/L (3.5-5.1)
[2023-06-03 08:42] LABS: ALBUMIN 4.2 g/dl (3.4-5.0); CALCIUM 9.3 mg/dL (8.5-10.1)
[2023-06-03 08:43] LABS: BLOOD UREA NITROGEN 9.8 mg/dL (7-18)
[2023-06-03 08:45] LABS: CREATININE 0.6 mg/dL (0.55-1.3)
[2023-06-03 08:47] LABS: BILIRUBIN,TOTAL 0.7 mg/dL (0.2-1); TOT PROT 8.3 g/dl (6.4-8.2)
[2023-06-03 08:54] LABS: PH,URINE 5.5 (5.0-8.0); URINE APPEARANCE CLOUDY; URINE BILIRUBIN NEGATIVE (NEGATIVE); URINE COLOR YELLOW; URINE GLUCOSE (UA) NEGATIVE (NEGATIVE); URINE KETONE 2+ (NEGATIVE); URINE LEUK ESTERASE NEGATIVE (NEGATIVE); URINE NITRITE NEGATIVE (NEGATIVE); URINE PROTEIN TRACE (NEGATIVE); URINE UROBILINOGEN 0.2 mg/dL (0.2-1.0)
[2023-06-03 10:27] VITALS: BP 124/77; PULSE 82; RESP 16; TEMP 98.9
== END 2023-06-03 10:36 | disposition home or self-care (01) ==
LOC: JER 06:30
PROC: 3E033GC Introduction of Other Therapeutic Substance into Peripheral Vein, Percutaneous Approach (ICD-10-PCS; principal; 2023-06-03)
PROC: 3E033GC Introduction of Other Therapeutic Substance into Peripheral Vein, Percutaneous Approach (ICD-10-PCS; 2023-06-03)
DX: R10.13 Epigastric pain (principal); R10.12 Left upper quadrant pain; R19.7 Diarrhea, unspecified; R11.0 Nausea; R09.81 Nasal congestion; Z20.822 Contact with and (suspected) exposure to COVID-19
CPT/HCPCS: 0241U-QW; 36415; 80053; 81003; 83690; 84703; 85025; 93005; 93010; 99284-25